=== PATIENT | male | born 1970 | race Caucasian/White ===

== ENCOUNTER → 2018-10-08 | Outpatient (REF) | payer BC | LOC: M LAB LCGH 11:16 | PROVIDERS: ATTEND Registered Nurse | DX: R31.9 Hematuria, unspecified (principal); Z72.0 Tobacco use ==

== ENCOUNTER → 2018-12-03 | Outpatient (REF) | payer BC | LOC: M LAB LCGH 12:03 | PROVIDERS: ATTEND Registered Nurse | DX: R31.9 Hematuria, unspecified (principal) ==